=== PATIENT | female | born 1980 | race Caucasian/White ===

== ENCOUNTER 2018-03-09 11:33 | Inpatient (IN) | payer MEDICAID ==
[2018-03-09] MEDS ORDERED: Betamethasone Soluspan 30 mg/5mL Inj Susp IM SCH (12:45)
[2018-03-09] MEDS ORDERED: Lactated Ringer's 1,000 ML IV SCH ×3 (12:45→15:15)
[2018-03-09 13:30] LABS: BASO % 0.2 % (0.0-2.0); EOS # 0.1 K/uL (0.0-0.7); EOS % 0.8 % (0.0-4.0); HEMOGLOBIN 12.1 g/dL (12.0-16.0); LYMPH # 1.7 K/uL (1.0-4.3); LYMPH % 18.6 % (20.0-40.0); MEAN CELL VOLUME 90.3 fl (81.0-99.0); MEAN CORPUSCULAR HEMOGLOBIN 31.4 pg (27.0-31.0); MEAN CORPUSCULAR HGB CONC 34.8 g/dL (33.0-37.0); MONO # 0.7 K/uL (0.0-0.8); MONO % 7.9 % (0.0-10.0); NEUT # 6.6 K/uL (1.8-7.0); NEUT % 72.5 % (50.0-75.0); RBC 3.86 Mil/uL (3.80-5.20); RED CELL DISTRIBUTION WIDTH 13.7 % (11.5-14.5); WHITE BLOOD COUNT 9.1 K/uL (4.8-10.8)
--- NOTE | 2018-03-09 14:24 | US ---
Date of service: 03/09/2018 PROCEDURE: ultrasound HISTORY: Rupture of membranes. COMPARISON: None TECHNIQUE: Standard protocol for this study/examination. FINDINGS: Fetus A Gestational age derived from Cannot be ascertained based in the absence of a reliable/ known LMP Gestational age derived from the following biometric parameters 36 weeks 3 days. DINA 04/03/2018 Head circumference 32.8 cm Abdominal circumference 30.9 cm Femur length 7.25 cm Estimated weight 2789 g Calculated cardiac rate 136 beats per min. Amniotic fluid index 11.26 Fetus B Gestational age derived from LMP Cannot be ascertained based in the absence of a reliable/ known LMP Gestational age derived from the following biometric parameters 33 weeks 6 days. DINA 04/21/2018 Biparietal diameter 9.1 cm Head circumference 31.1 cm Abdominal circumference 27.65 cm Femur length 6.1 cm Estimated weight 1971 g Calculated cardiac rate 137 beats per min. Amniotic fluid index 12.7 IMPRESSION: Twin intrauterine gestations described in greater detail above.
--- NOTE | 2018-03-09 14:53 | OBADHP ---
Datetime: 03/09/2018 12:01 Admit Comment, IP Provider: 37 yo female at 33.0 GA- Di Di twins (as told by patient)- unsur e of last menstrual period presents for possible rupture of membranes. She reports a gush of fluid this morning at 10:30 am associated with lower pelvis pressure but not contractions. Denies vaginal bleeding and decrease in movement. Medical history: Newly diagnosed Hep C and is followed by a instrument person- LFT's have been i n normal range since . Family history: denies. Allergies: NKDA Medications: PNV Surgical history: Denies PE: No acute distress. Heart: S1 and S2. No murmurs, gallops or rubs. Lungs: Clear auscultation bilaterallly. 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 - Gross rupture of membranes. Nitrozine positive. heart monitor: Baseline 150 ; Accelerations present. No decelerations; No contractions appre ciated. Bedside Ultrasound performed: membranes ruptured. Assessment:37 yo female at 33.0 GA presents for possible rupture of membranes Plan: - Records being uptained from [facility]. - Observe and monitor - Ampicillin 2 gram 100ml Q6H - Celestone 12mg IM Q24H - LR @ 75mls/hr - CBC and T/S - B-HCG - Swab Disscused with Dr. Olivia Kim, PGY-[address] Baker: I have evalauted the patient independently and I agree with the above. Briana ent is a @ 33.5 wks with PPROM. Patient was confirmed by pooling and nitrazine on speculum exa m and has made change from 2-3cm dilated. Baby A/B both vertex/vertex confirmed by U/S. Twin A = 140 mod alma, +accels, no decels. Twin B = 135 mod alma, +accels, no decels. Discussed with patient plan is for vaginal delivery. In the event of distress or presenting part of either fetus becomes non- vertex, will proceed with for delivery. Patient has signed informed consent for . Azithromycin/Ampicillin for latency antibiotics have been given, Betamethasone for lung maturity has been given. patient declined pain management at this point. Continue to monitor and will re-evaluate Pelvic Type - PN: Adequate Extremities - PN: Normal Abdomen - PN: Normal Back - PN: Normal Breast - PN: Not Done Lungs - PN: Normal Heart - PN: Normal Thyroid - PN: Not Done Neurologic - PN: Normal HEENT - PN: Normal General - PN: Normal FHR - Baseline A Provider: 150 Comments, ACOG Physical Exam: PE: No acute distress. Heart: S1 and S2. No murmurs, gallops or rubs. Lungs: Clear auscultation bilaterallly. 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 - Gross rupture of membranes. Nitrozine positive. heart monitor: Baseline 150 ; Accelerations present. No decelerations; No contractions appre ciated. Bedside Ultrasound performed: membranes ruptured. Nitrazine Provider: Positive Vital Signs Provider: Reviewed; Within Normal Limits IP Chief Complaint: Suspected ruptured membranes NICHD Variability Prov Fetus A: Moderate 6-25bpm NICHD Accel Fetus A IP Provider: [id number] FHR Category Provider Fetus A: Category I NICHD Decel Fetus A IP Provider: None Dilatation, Provider: 2 Effacement, Provider: 50 Station, Provider: -2 Genitourinary Exam: Normal DTRs - PN: Not Done EGA AdmitDate IP: 33.5 IP Adm Impression: Ruptured Membranes IP Admit Plan: Observation/Evaluation
[2018-03-09] MEDS ORDERED: Fentanyl/Bupivacaine HCl 250 ML EPI ONE (15:33)
[2018-03-09] MEDS ORDERED: AMPicillin 2 GM in Sodium Chloride 0.9% 100 ML IV SCH (16:00)
[2018-03-09] MEDS ORDERED: Oxytocin 30 UNIT 30 UNITS/500 ML BAG IV ONE ×2 (16:25→18:24)
[2018-03-09] MEDS ORDERED: Propofol 10 mg/ml Inj (20 ML) ONE (18:05)
[2018-03-09] MEDS ORDERED: Benzocaine/Menthol SPRAY TOP PRN ×2 (18:24→22:11)
[2018-03-09] MEDS ORDERED: Oxycodone/Acetaminophen 5/325 mg Tab PO PRN ×2 (18:24→22:11)
--- NOTE | 2018-03-09 18:24 | OBDS ---
DELIVERY PERSONNEL Delivery Doctor: Randi Baker MD Linux Security Administrator: MBorreJanuary/WGrimmRNANCC/JMcCartyRN Anesthesiologist: Moriah Stephens MD Resident: Dr Gallardo (OB FELLOW) MATERNAL INFORMATION Delivery Anesthesia: Epidural Medications in Delivery: Pitocin Estimated Blood Loss (ml): 450 Placenta Cultured: No Maternal Complications: None Provider Comments: of live female infants over intact perineum, Twin A - vertex in VERO followed by rest of atraumatically, delayed cord clamping, handed off to waiting shower screen installer, Twin B - vertex OA presentation followed by shoulders and rest of infant atraumatically, delayed cord clamp ing, handed off to waiting shower screen installer, Cord blood obtained from both placentas, placenta delivered spontaneously, fundus firm, no lacerations to repair, EBL = 450mL, pt tolerated procedure LABOR SUMMARY EDC: 04/22/2018 00:00 No. Babies in Womb: 1 MEMBRANES Membranes Rupture Method: Spontaneous Rupture of Membranes: 03/09/2018 10:30 Length of Rupture (hrs): 7.25 Amniotic Fluid Color: Clear Amniotic Fluid Amount: Large Amniotic Fluid Odor: Normal STAGES OF LABOR Stage 3 hrs: 0 Stage 3 min: 20 VAGINAL DELIVERY Episiotomy: None Laceration Extension: N/A Laceration Type: None Initial Vag Sponge Count: lap=5 with ring and 1 without ring //sponges=10 Final Vag Sponge Count: laps= 5 with ring and 1 without ring//sponges=10 Initial Vag Sharps Count: 0 Final Vag Sharps Count: 0 Sponge Count Correct: N/A Count Comment: count correct BABY A INFORMATION Infant Delivery Date/Time: 03/09/2018 17:45 Method of Delivery: Vaginal Born in Route : No : N/A Forceps: N/A Vacuum Extraction: N/A Shoulder Dystocia : No SHOULDER DYSTOCIA BABY A Infant Delivery Date/Time: 03/09/2018 17:45 PRESENTATION/POSITION BABY A Presentation: Cephalic Cephalic Presentation: Vertex Breech Presentation: N/A PLACENTA INFORMATION BABY A Placenta Delivery Time : 03/09/2018 18:05 Placenta Method of Delivery: Spontaneous Placenta Status: Delivered SCORES BABY A Resuscitation Effort 1 min: Tactile Stimulation Heart Rate 5 min: Slow, Below 100 bpm INFORMATION BABY A Gestational Age at Delivery: 33.5 Gestational Status: Outcome : Liveborn Infant Condition : Stable Infant Sex: Female IDENTIFICATION/MEDS BABY A ID Band Number: [id number] ID Band Location: Left Leg; Left Arm Vitamin K Given : Not Given Erythromycin Given: Not Given CORD INFORMATION BABY A No. Cord Vessels: 3 Nuchal Cord : N/A Nuchal Cord Other: n/a True Knot: n/a Infant Cord pH Baby Arterial: n/a Infant Cord pH Baby Venous: n/a Cord Blood Taken: Yes Banking/Donate Info: n/a Suction: Mouth; Nose BABY B INFORMATION Infant Delivery Date/Time: 03/09/2018 17:56 Method of Delivery : Vaginal Born in Route : No : N/A Forceps : N/A Vacuum Extraction: N/A Shoulder Dystocia : No SHOULDER DYSTOCIA BABY B Infant Delivery Date/Time: 03/09/2018 17:56 PRESENTATION/POSITION BABY B Presentation : Cephalic Cephalic Position : Vertex Breech Position: N/A ROM/PLACENTA INFO BABY B Rupture of Membranes: 03/09/2018 10:30 Length of Rupture (hrs): 7.43 Placenta Delivery Time : 03/09/2018 18:07 Placenta Method of Delivery: Spontaneous Placental Status : Delivered INFORMATION BABY B Gestational Age at Delivery: 33.5 Gestational Status : Outcome : Liveborn Condition : Stable Infant Sex : Female IDENTIFICATION/MEDS BABY B ID Band Number : [id number] ID Band Location : Left Leg; Left Arm Vitamin K Given : Not Given Erythromycin Given : Not Given CORD INFORMATION BABY B No. Cord Vessels : 3 Nuchal Cord : N/A Nuchal Cord Other: n/a True Knot : n/a Infant Cord pH Arterial: n/a Cord pH Venous: n/a Cord Blood Taken : Yes Banking/Donate Info : n/a
[2018-03-09] MEDS ORDERED: OXYTOCIN/0.9 % NS 20 UNIT/1,000 ML BAG IV ONE (19:04)
[2018-03-09] MEDS ORDERED: OXYTOCIN/0.9 % NS 20 UNIT/1,000 ML BAG IV SCH ×2 (19:15→22:11)
[2018-03-10 06:34] LABS: BASO % 0.2 % (0.0-2.0); EOS % 0.1 % (0.0-4.0); HEMOGLOBIN 9.8 g/dL (12.0-16.0); LYMPH # 1.9 K/uL (1.0-4.3); LYMPH % 12.8 % (20.0-40.0); MEAN CORPUSCULAR HGB CONC 35.6 g/dL (33.0-37.0); MEAN PLATELET VOLUME 8.8 fl (7.2-11.7); MONO # 1.2 K/uL (0.0-0.8); MONO % 8.1 % (0.0-10.0); NEUT % 78.8 % (50.0-75.0); RBC 3.05 Mil/uL (3.80-5.20); RED CELL DISTRIBUTION WIDTH 13.7 % (11.5-14.5); WHITE BLOOD COUNT 15.2 K/uL (4.8-10.8)
[2018-03-10 07:18] LABS: ALB/GLOB RATIO 0.8 (1.0-2.1); ALBUMIN 2.4 g/dL (3.5-5.0); ALT/SGPT 35 U/L (9-52); AST/SGOT 28 U/L (14-36); BLOOD UREA NITROGEN 5 mg/dl (7-17); CALCIUM 8.1 mg/dL (8.4-10.2); GFR NON-AFRICAN AMERICAN > 60
[2018-03-10] MEDS ORDERED: Multivitamin With Minerals Tab PO SCH (09:00)
[2018-03-10] MEDS: Multivitamin With Minerals Tab PO SCH (09:18)
--- NOTE | 2018-03-10 10:43 | OBPPN ---
Datetime: 03/10/2018 05:33 PP Pain Prov: Within normal limits PP Nausea Prov: Denies PP Flatus Prov: Yes PP BM Prov: No PP Heart Prov: Normal PP Lungs Prov: Normal PP Abdomen/Uterus Prov: Normal PP Lochia Prov: Normal PP CVA Tenderness Prov: Normal PP C/S Incision Prov: Not Applicable PP Progress Prov: Not Applicable PP Impression Prov: Normal progression PP Plan Prov: Continue present management PP Progress Note Prov: PPD 1 S: 37 yo F . Seen and examined bedside. Patient reports mild pain since delivery, controlle d with pain medication. Has ambulated to the bathroom twice without dizziness. Bottle feeding only. L ochia is similar to menses volume. Is passing gas but denies a bowel movement. Denies fever/chills, d iarrhea, nausea/vomitting, CP/SOB, calf pain and lightheadedness. O: BP 128/63 , HR 86 , Tmax 98.6F Blood: AB+, Antibody neg Rubella: immune PE: GEN: A_O, Resting comfortably in bed HEENT: White sclera, oral mucosa moist Breast: Engorged Lungs: CTA B/L, no wheeze CVS: RRR, S1, S2 normal ABD: +BS, firm fundus @ umbilicus, soft Pelvic: Appropriate amount of lochia, no odor, minimal small clots Assessment:37 yo F twin on 03/09/18. Pt afebrile, tolerating pain with medication and tolerating oral intake of liquids and solids. Plan: Regular diet as tolerated OOB with caution Ibuprofen 600mg 1tab Q6h PO for mild pain Encourage ambulatory Iron: if h/h <10, take with Vit C Colace 100mg PO BID for constipation Simethicone 80mg BID for gas Disposition: anticipate discharge to home on 03/11/18 with oob/ambulatory precaution. ----Demi Mathew, PGY1 Family Medicine OB Hospitalist on-call : pt seen on rounds this AM...with Hx Hep C will obtain GI consult MAHNDO IP PP Procedures: None Vital Signs Provider PP: Within Normal Limits
--- NOTE | 2018-03-10 13:33 | CP.PCM.CON ---
<Emily Goldman - Last Filed: 03/10/18 13:26> History of Present Illness - History of Present Illness History of Present Illness: GI Fellow PGY5 Consult Note This is a 37yF with a reported hx of HepC presenting for delivery of twins. She was admitted for labor and had twins via vaginal delivery. GI was consulted for hx of HepC. Pt has normal LFTs and reports her last was 8yrs ago with the same partners. She denies any prior knowledge of this diagnosis and found out during this . She reports one partner for 8yrs, no IVDA, no blood transfusions. Pt reports she was seen by GI doctor in [place] and was told to get treated after her . Pt is currently doing well with no complaints. No hx of jaundice, ascites or hepatic encephalopathy. ROS: A 12pt ROS was negative as above PmHx: As stated above PsHx: Denies SHx: Denies tobacco, drugs, etoh FHx: Neg for colon cancer Meds Allergies/Adverse Reactions: Allergies Allergy/AdvReac Type Severity Reaction Status Date / Time No Known Allergies Allergy Verified 03/09/18 11:46 - Medications Medications: Current Medications Benzocaine/Menthol (Dermoplast) 1 sprays TOP Q6 PRN PRN Reason: Perineal Discomfort Docusate Sodium (Colace) 100 mg PO BID [facility] Last Admin: 03/10/18 09:17 Dose: 100 mg OXYTOCIN/0.9 % NS (Oxytocin 20 Unit/1000 Ml-Ns) 20 unit in 1,000 mls @ 125 mls/hr IV .Q8H DANIELA; Protocol Ibuprofen (Motrin Tab) 600 mg PO Q6 PRN PRN Reason: Pain, Mild (1-3) Last Admin: 03/10/18 05:06 Dose: 600 mg Multivitamins/Minerals (Therapeutic-M Tab) 1 tab PO DAILY DANIELA Last Admin: 03/10/18 09:18 Dose: 1 tab Oxycodone/Acetaminophen (Percocet 5/325 Mg Tab) 1 tab PO Q4 PRN PRN Reason: Pain, moderate (4-7) Stop: 03/12/18 18:25 Physical Exam - Constitutional Appears: Non-toxic, No Acute Distress - Head Exam Head Exam: ATRAUMATIC, NORMAL INSPECTION - Eye Exam Eye Exam: EOMI, Normal appearance, PERRL Pupil Exam: PERRL - ENT Exam ENT Exam: Mucous Membranes Moist - Neck Exam Neck exam: Positive for: Full Rom, Normal Inspection - Respiratory Exam Respiratory Exam: Clear to Auscultation Bilateral, NORMAL BREATHING PATTERN - Cardiovascular Exam Cardiovascular Exam: REGULAR RHYTHM, RRR, +S1, +S2 - GI/Abdominal Exam GI & Abdominal Exam: Normal Bowel Sounds, Soft. absent: Distended, Guarding, Organomegaly, Tenderness - Rectal Exam Rectal Exam: Deferred - Extremities Exam Extremities exam: Positive for: full ROM, normal inspection - Back Exam Back exam: NORMAL INSPECTION - Neurological Exam Neurological exam: Alert, Oriented x3 - Psychiatric Exam Psychiatric exam: Normal Affect, Normal Mood - Skin Skin Exam: Dry, Intact, Normal Color, Warm Results - Labs Result Diagrams: 03/10/18 06:20 03/10/18 06:20 Labs: Laboratory Results - last 24 hr 03/09/18 03/09/18 03/10/18 12:20 12:20 06:20 WBC 9.1 15.2 H D RBC 3.86 3.05 L Hgb 12.1 9.8 L D Hct 34.8 27.4 L MCV 90.3 90.0 MCH 31.4 H 32.0 H MCHC 34.8 35.6 RDW 13.7 13.7 Plt Count 291 311 MPV 9.0 8.8 Neut % (Auto) 72.5 78.8 H Lymph % (Auto) 18.6 L 12.8 L Clay % (Auto) 7.9 8.1 Eos % (Auto) 0.8 0.1 Baso % (Auto) 0.2 0.2 Neut # (Auto) 6.6 12.0 H Lymph # (Auto) 1.7 1.9 Clay # (Auto) 0.7 1.2 H Eos # (Auto) 0.1 0.0 Baso # (Auto) 0.0 0.0 Sodium Potassium Chloride Carbon Dioxide Anion Gap BUN Creatinine Est GFR ( Amer) Est GFR (Non-Af Amer) Random Glucose Calcium Total Bilirubin AST ALT Alkaline Phosphatase Total Protein Albumin Globulin Albumin/Globulin Ratio HIV-1 Ab Rapid Screen Blood Type AB POSITIVE Antibody Screen Negative BBK History Checked Patient has bt 03/10/18 03/10/18 06:20 06:20 WBC RBC Hgb Hct MCV MCH MCHC RDW Plt Count MPV Neut % (Auto) Lymph % (Auto) Clay % (Auto) Eos % (Auto) Baso % (Auto) Neut # (Auto) Lymph # (Auto) Clay # (Auto) Eos # (Auto) Baso # (Auto) Sodium 136 Potassium 3.1 L Chloride 109 H Carbon Dioxide 22 Anion Gap 8 L BUN 5 L Creatinine 0.5 L Est GFR ( Amer) > 60 Est GFR (Non-Af Amer) > 60 Random Glucose 112 H Calcium 8.1 L Total Bilirubin 0.2 AST 28 ALT 35 Alkaline Phosphatase 67 Total Protein 5.2 L Albumin 2.4 L Globulin 2.8 Albumin/Globulin Ratio 0.8 L HIV-1 Ab Rapid Screen Non reactive Blood Type Antibody Screen BBK History Checked Assessment & Plan - Assessment and Plan (Free Text) Assessment: This a 37yF presenting to Obstetrics department in labor and gave to twins vaginally. GI was consulted for recent diagnosis of Hepatitis C. Plan: -Continue care -Pt with hep C antibody positive, which means pt was expose to viral infection, unclear if pt has active infection at this time -Pt understands and plans to return back to her GI doctor to see if she needs further workup and possible treatment for Hep C infection -It is okay to breast feed, no concern for transmission -Recommend testing of her partner and her children -Okay for sexual encounter with partner -Avoid blood to blood contact -Discussed in detail with Dr. Valero and pt about HepC and further plan of care, answered pt's questions -Pt will need to followup outpt with Hepatologits/GI <Brenton Valero - Last Filed: 03/10/18 17:32> Meds - Medications Medications: Current Medications Benzocaine/Menthol (Dermoplast) 1 sprays TOP Q6 PRN PRN Reason: Perineal Discomfort Docusate Sodium (Colace) 100 mg PO BID [facility] Last Admin: 03/10/18 09:17 Dose: 100 mg OXYTOCIN/0.9 % NS (Oxytocin 20 Unit/1000 Ml-Ns) 20 unit in 1,000 mls @ 125 mls/hr IV .Q8H DANIELA; Protocol Ibuprofen (Motrin Tab) 600 mg PO Q6 PRN PRN Reason: Pain, Mild (1-3) Last Admin: 03/10/18 05:06 Dose: 600 mg Multivitamins/Minerals (Therapeutic-M Tab) 1 tab PO DAILY DANIELA Last Admin: 03/10/18 09:18 Dose: 1 tab Oxycodone/Acetaminophen (Percocet 5/325 Mg Tab) 1 tab PO Q4 PRN PRN Reason: Pain, moderate (4-7) Stop: 03/12/18 18:25 Results - Labs Result Diagrams: 03/10/18 06:20 03/10/18 06:20 Labs: Laboratory Results - last 24 hr 03/10/18 03/10/18 03/10/18 06:20 06:20 06:20 WBC 15.2 H D RBC 3.05 L Hgb 9.8 L D Hct 27.4 L MCV 90.0 MCH 32.0 H MCHC 35.6 RDW 13.7 Plt Count 311 MPV 8.8 Neut % (Auto) 78.8 H Lymph % (Auto) 12.8 L Clay % (Auto) 8.1 Eos % (Auto) 0.1 Baso % (Auto) 0.2 Neut # (Auto) 12.0 H Lymph # (Auto) 1.9 Clay # (Auto) 1.2 H Eos # (Auto) 0.0 Baso # (Auto) 0.0 Sodium 136 Potassium 3.1 L Chloride 109 H Carbon Dioxide 22 Anion Gap 8 L BUN 5 L Creatinine 0.5 L Est GFR ( Amer) > 60 Est GFR (Non-Af Amer) > 60 Random Glucose 112 H Calcium 8.1 L Total Bilirubin 0.2 AST 28 ALT 35 Alkaline Phosphatase 67 Total Protein 5.2 L Albumin 2.4 L Globulin 2.8 Albumin/Globulin Ratio 0.8 L Hepatitis C Antibody Reactive HIV-1 Ab Rapid Screen Non reactive Attending/Attestation - Attestation I have personally seen and examined this patient.: Yes I have fully participated in the care of the patient.: Yes I have reviewed all pertinent clinical information: Yes Notes (Text): 03/10/18 17:30 Patient seen in post unit this am. This a 37yF presenting to Obstetrics department in labor and gave to twins vaginally. GI was consulted for recent diagnosis of Hepatitis C. She is treatment naive. She can start treatment once full work up of viral load and genotype and fibrosure is available. Pt with hep C antibody positive, which means pt was expose to viral infection, unclear if pt has active infection at this time. It is okay to breast feed, no concern for transmission -Recommend testing of her partner and her children -Okay for sexual encounter with partner -Avoid blood to blood contact
[2018-03-10 13:57] LABS: HEPATITIS C ANTIBODY REACTIVE (NEGATIVE)
[2018-03-11] MEDS: Multivitamin With Minerals Tab PO SCH (08:28)
[2018-03-11 23:13] VITALS: BP 124/76; PULSE 73; RESP 20; TEMP 98.7; O2SAT 96
== END 2018-03-11 14:05 | disposition home or self-care (01) | DRG 372 ==
LOC: H.EROB2 11:33 → H.L&D 12:56 → H.OB/GYN 21:34
PROVIDERS: ADMIT Obstetrics & Gynecology; ATTEND Obstetrics & Gynecology
PROC: 10E0XZZ Delivery of Products of Conception, External Approach (ICD-10-PCS; principal; 2018-03-09)
PROC: 4A1HXCZ Monitoring of Products of Conception, Cardiac Rate, External Approach (ICD-10-PCS; 2018-03-09)
DX: O60.14X2 Preterm labor third trimester with preterm delivery third trimester, fetus 2 (principal); O30.043 Twin pregnancy, dichorionic/diamniotic, third trimester; Z3A.33 33 weeks gestation of pregnancy; Z37.2 Twins, both liveborn; O66.0 Obstructed labor due to shoulder dystocia; Z86.19 Personal history of other infectious and parasitic diseases; O09.523 Supervision of elderly multigravida, third trimester; K59.00 Constipation, unspecified

== ENCOUNTER 2018-03-24 10:17 | Emergency (ER) | payer MEDICAID ==
--- NOTE | 2018-03-24 11:01 | ED PDOC ---
HPI: Female Pain Time Seen by Provider: 03/24/18 11:00 Chief Complaint (Nursing): Female Genitourinary Chief Complaint (Provider): bleeding History Per: Patient (37 y/o female recent delivery of twins 03/09/2018 here with vaginal bleeding with clots today. Was advised to return to ED for persistent bleeding. Denies any syncope/near syncope.) Past Medical History Reviewed: Historical Data, Nursing Documentation, Vital Signs Vital Signs: Last Vital Signs Temp 98.2 F 03/24/18 10:21 Pulse 76 03/24/18 10:21 Resp 19 03/24/18 10:21 BP 159/94 H 03/24/18 10:21 Pulse Ox 98 03/24/18 10:38 - Medical History PMH: Denies: Depression, Diabetes, HTN - Family History Family History: States: No Known Family Hx - Allergies Allergies/Adverse Reactions: Allergies Allergy/AdvReac Type Severity Reaction Status Date / Time No Known Allergies Allergy Verified 03/09/18 11:46 Review of Systems ROS Statement: Except As Marked, All Systems Reviewed And Found Negative Physical Exam - Reviewed Nursing Documentation Reviewed: Yes Vital Signs Reviewed: Yes - Physical Exam Appears: Positive for: Well, Non-toxic, No Acute Distress Head Exam: Positive for: ATRAUMATIC, NORMAL INSPECTION, NORMOCEPHALIC Skin: Positive for: Normal Color, Warm, DRY Eye Exam: Positive for: EOMI, Normal appearance, PERRL ENT: Positive for: Normal ENT Inspection Neck: Positive for: Normal, Painless ROM Cardiovascular/Chest: Positive for: Regular Rate, Rhythm Respiratory: Positive for: CNT, Normal Breath Sounds Gastrointestinal/Abdominal: Positive for: Normal Exam, Soft Back: Positive for: Normal Inspection Extremity: Positive for: Normal ROM Neurologic/Psych: Positive for: Alert, Oriented - Laboratory Results Result Diagrams: 03/24/18 11:05 03/24/18 11:05 - ECG O2 Sat by Pulse Oximetry: 98 - Progress ED Course And Treament: TRANSVAGINAL US: IMPRESSION: 1. Heterogeneous endometrium measuring up to 14.5 mm greatest thickness without abnormal blood flow pattern to suggest retained products of conception. Instead hemorrhagic products and likely debris are identified internally causing its heterogeneous appearance. Further clinical correlation recommended. Fluid is noted in the cervix. 2. Heterogeneous but nonfocal myometrium with hyperemia, likely related to state. 3. No suspicious adnexal findings. D/W DR. MAY. PATIENT TO F/U OUTPATIENT WITH PRIMARY INVASIVE MANAGER PROVIDER IN 1-2 WEEKS Disposition - Clinical Impression Clinical Impression: Vaginal bleeding - Patient ED Disposition Is Patient to be Admitted: No - Disposition Disposition: Routine/Home Disposition Time: 13:16 Condition: FAIR Additional Instructions: FOLLOW UP WITH YOUR OB IN 1-2 WEEKS Instructions: Bleeding
[2018-03-24 11:15] LABS: BASO # 0.1 K/uL (0.0-0.2); BASO % 0.9 % (0.0-2.0); EOS # 0.1 K/uL (0.0-0.7); EOS % 1.5 % (0.0-4.0); HEMOGLOBIN 11.2 g/dL (12.0-16.0); LYMPH # 1.8 K/uL (1.0-4.3); LYMPH % 23.9 % (20.0-40.0); MEAN CELL VOLUME 91.6 fl (81.0-99.0); MEAN CORPUSCULAR HEMOGLOBIN 30.7 pg (27.0-31.0); MEAN CORPUSCULAR HGB CONC 33.5 g/dL (33.0-37.0); MEAN PLATELET VOLUME 7.7 fl (7.2-11.7); MONO # 0.4 K/uL (0.0-0.8); MONO % 5.8 % (0.0-10.0); NEUT # 5.1 K/uL (1.8-7.0); NEUT % 67.9 % (50.0-75.0); RBC 3.63 Mil/uL (3.80-5.20); RED CELL DISTRIBUTION WIDTH 13.6 % (11.5-14.5); WHITE BLOOD COUNT 7.5 K/uL (4.8-10.8)
[2018-03-24 11:43] LABS: ALB/GLOB RATIO 1.1 (1.0-2.1); ALBUMIN 3.6 g/dL (3.5-5.0); ALT/SGPT 46 U/L (9-52); AST/SGOT 34 U/L (14-36); BLOOD UREA NITROGEN 11 mg/dl (7-17); CALCIUM 8.4 mg/dL (8.4-10.2); GFR NON-AFRICAN AMERICAN > 60
--- NOTE | 2018-03-24 12:47 | US ---
Date of service: 03/24/2018 HISTORY: 03/09 with bleeding of clots COMPARISON: None available. TECHNIQUE: Transabdominal and transvaginal pelvic ultrasound was performed with longitudinal and transverse images submitted for interpretation. FINDINGS: UTERUS: Measures 13.5 x 7.8 x 8.8 cm. The uterus is anteverted with moderately heterogeneous appearing myometrium appears slightly hyperemic, which is not unusual for the uterus. No fibroid or other mass lesion seen. ENDOMETRIUM: Measures 14.5 mm in diameter. The endometrium appears heterogeneous in echotexture suggesting residual debris and hemorrhagic products within the lumen but there is no hyperemia directly associated with the endometrium to indicate retained products of conception. CERVIX: Fluid is identified in the cervix which is otherwise unremarkable. RIGHT OVARY: Measures 3.9 x 2.5 x 4.0 cm. No solid mass. Normal flow. LEFT OVARY: Measures 3.8 x 2.1 x 3.3 cm. No solid mass. Normal flow. FREE FLUID: No significant free fluid noted. OTHER FINDINGS: None. IMPRESSION: 1. Heterogeneous endometrium measuring up to 14.5 mm greatest thickness without abnormal blood flow pattern to suggest retained products of conception. Instead hemorrhagic products and likely debris are identified internally causing its heterogeneous appearance. Further clinical correlation recommended. Fluid is noted in the cervix. 2. Heterogeneous but nonfocal myometrium with hyperemia, likely related to state. 3. No suspicious adnexal findings.
[2018-03-24 13:54] VITALS: BP 122/68; PULSE 74; RESP 20; TEMP 98; O2SAT 98
== END 2018-03-24 13:53 | disposition home or self-care (01) ==
LOC: H.ER 10:17
DX: N93.9 Abnormal uterine and vaginal bleeding, unspecified (principal)